=== PATIENT | female | born 1970 | race Caucasian/White ===

== ENCOUNTER 2020-04-12 18:22 | Emergency (ER) | payer OTHER, SELFPAY ==
[2020-04-12 18:28] VITALS: BP 125/80; PULSE 67; RESP 16; O2SAT 100
[2020-04-12 19:02] LABS: Add Manual Diff / Slide Review NO; Basophils Absolute Auto 0 /uL (0-100); Basophils Percent Auto 0.3 % (0-2); Eosinophils Absolute Auto 500 /uL (0-450); Hematocrit 37.6 % (36-46); Hemoglobin 13.1 g/dL (12.0-16.0); Lymphocytes Absolute Auto 3000 /uL (1100-4500); Lymphocytes Percent Auto 40.6 % (25-40); Mean Corpuscular HGB Conc 34.7 % (30-36); Mean Corpuscular Hemoglobin 31.3 PG (26-34); Mean Corpuscular Volume 90.1 fL (80-100); Monocytes Absolute Auto 400 /uL (0-900); Monocytes Percent Auto 5.1 % (3-14); Neutrophils Absolute Auto 3600 /uL (1500-7000); Platelet Count 271 X10^3/uL (150-400); Red Blood Cell Count 4.18 X10^6/uL (4.0-5.2); White Blood Cell Count 7.5 X10^3/uL (4.5-11.0)
--- NOTE | 2020-04-12 19:09 | ED_ITS ---
HPI - General Adult General Chief complaint: Abdominal Pain Stated complaint: possible diverticulitis or appendicitis Time Seen by Provider: 04/12/20 19:03 Source: patient Mode of arrival: Ambulatory Limitations: no limitations History of Present Illness HPI narrative: 50-year-old female. History of diverticulosis. No history of diverticulitis. 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 Here for evaluation of right lower quadrant abdominal pain. States that it does radiate around her back. Saw her primary provider who sent her to the emergency department for concern of appendicitis versus diverticulitis. Has not tried anything for the symptoms prior to arrival. His currently finishing a menstrual cycle. No urinary symptoms. No change in bowel habits. No vomiting. Related Data Home Medications Medication Instructions Recorded Confirmed amlodipine 5 mg tablet 5 mg PO DAILY 05/11/19 05/11/19 citalopram 10 mg tablet 10 mg PO DAILY 05/11/19 05/11/19 Allergies Allergy/AdvReac Type Severity Reaction Status Date / Time codeine [CODEINE] Allergy Mild vomit Verified 04/12/20 19:25 Morpholine Analogues AdvReac Verified 04/12/20 19:25 Review of Systems Constitutional Constitutional: Denies fever(s) Cardiovascular Cardiovascular: Denies chest pain and Denies dyspnea Respiratory Respiratory: Denies dyspnea Gastrointestinal Gastrointestinal: Reports abdominal pain and Denies change in bowel habits Genitourinary Genitourinary: Denies dysuria Genitourinary: Denies dysuria Integumentary/Breasts Skin/Breast: Denies lesions and Denies rash Neurologic Neurologic: Denies behavioral changes Psychiatric Psychiatric: Denies behavioral changes Hematologic/Lymphatic Hematologic/Lymphatic: Denies easy bleeding and Denies easy bruising Allergic/Immunologic Allergic/Immunologic: Denies urticaria Patient History Medical History Diverticulosis (Acute) History of depressive symptoms Social History Smoking Status: Never smoker Smoking Status: Never smoker Exam Initial Vital Signs Initial Vital Signs: Vital Signs Pulse Rate 67 04/12/20 18:28 Respiratory Rate 16 04/12/20 18:28 Blood Pressure 125/80 04/12/20 18:28 Pulse Oximetry 100 04/12/20 18:28 Const General: cooperative, healthy appearing, comfortable and well developed Limitations: mental status not altered HENMT Head: normal to inspection and normocephalic Resp Effort & Inspection: normal respiratory effort Auscultation: clear to auscultation bilaterally Cardio Rate: regular rate Rhythm: regular rhythm GI Inspection: non-distended Palpation: soft, No firm and tender (Right lower quadrant without rebound or guarding) Back/Spine/Pelvis Back: CVA tenderness right Skin Lesions: no lesions Rashes: no rashes Neuro General: patient alert and patient awake Cognition: normal cognition Speech: speech normal Extrem General: normal to inspection and capillary refill normal Psych Appearance: grossly normal and well kempt Course Orders Ordered: ED Orders 04/12/20 18:54 Complete Blood Count AUTO DIFF Stat Comprehensive Metabolic Panel Stat Lipase Stat 04/12/20 19:10 CT abdomen pelvis w con Stat Discontinued Medications Sodium Chloride (Normal Saline 0.9%) 1,000 mls @ 150 mls/hr IV CONT FARHAT Last Admin: 04/12/20 21:03 Dose: Not Given Documented by: JANUSZ Sodium Chloride (Normal Saline 0.9%) 1,000 mls @ 1,000 mls/hr IV BOLUS ONE Stop: 04/12/20 20:09 Last Admin: 04/12/20 19:25 Dose: 1,000 mls/hr Documented by: JANUSZ Vital Signs Vital signs: Vital Signs - 8 hr 04/12/20 18:28 04/12/20 21:04 Temperature 98.2 F Pulse Rate 67 57 L Respiratory Rate 16 21 Blood Pressure 125/80 130/74 Pulse Oximetry 100 100 Medical Decision Making Medical Records Medical records reviewed: Yes I reviewed the patient's medical records. Lab Data Lab results reviewed: Yes I reviewed the patient's lab results. Result diagrams: 04/12/20 18:54 04/12/20 18:54 Labs: Lab Results 04/12/20 04/12/20 Range/Units 18:54 18:54 WBC 7.5 (4.5-11.0) X10^3/uL RBC 4.18 (4.0-5.2) X10^6/uL Hgb 13.1 (12.0-16.0) g/dL Hct 37.6 (36-46) % MCV 90.1 (80-100) fL MCH 31.3 (26-34) PG MCHC 34.7 (30-36) % RDW 13.0 (11.6-14.8) % Plt Count 271 (150-400) X10^3/uL Neut % (Auto) 48.0 L (50-75) % Lymph % (Auto) 40.6 H (25-40) % Larue % (Auto) 5.1 (3-14) % Eos % (Auto) 6.0 H (2-4) % Baso % (Auto) 0.3 (0-2) % Neut # (Auto) 3600 (5093-6351) /uL Lymph # (Auto) 3000 (1085-6312) /uL Larue # (Auto) 400 (0-900) /uL Eos # (Auto) 500 H (0-450) /uL Baso # (Auto) 0 (0-100) /uL Sodium 137 (137-145) mmol/L Potassium 4.5 (3.4-5.1) mmol/L Chloride 106 (98-107) mmol/L Carbon Dioxide 23 (22-32) mmol/L BUN 17 (7-17) mg/dL Creatinine 0.78 (0.52-1.04) mg/dL Estimated GFR > 60.0 (>60) mL/min BUN/Creatinine Ratio 21.8 (6-22) Glucose 80 (70-100) mg/dL Calcium 9.6 (8.4-10.2) mg/dL Total Bilirubin 0.9 (0.2-1.3) mg/dL AST 51 H (14-36) IU/L ALT 29 (<35) IU/L Alkaline Phosphatase 51 (38-126) U/L Total Protein 8.2 (6.3-8.2) g/dL Albumin 4.9 (3.5-5.0) g/dL Globulin 3.3 (1.7-4.1) g/dL Albumin/Globulin Ratio 1.5 (1.0-2.8) Lipase 129 (23-300) U/L Urine Dip Bedside Urine Glucose Negative Bedside Urine Bilirubin - Negative Bedside Urine Ketone +/- 5 Urine Specific [place] 1.015 Bedside Urine Occult Blood ++ Bedside Urine pH 7.0 Bedside Urine Protein - Negative Bedside Urine Urobilinogen - Negative Bedside Urine Nitrite - Negative Bedside Urine Leukocytes - Negative Esterase Point of care testing: Urine Dip Bedside Urine Glucose Negative Bedside Urine Bilirubin - Negative Bedside Urine Ketone +/- 5 Urine Specific [place] 1.015 Bedside Urine Occult Blood ++ Bedside Urine pH 7.0 Bedside Urine Protein - Negative Bedside Urine Urobilinogen - Negative Bedside Urine Nitrite - Negative Bedside Urine Leukocytes - Negative Esterase Imaging Data CT scan - abdomen/pelvis: Radiologist's Impression: Small nonobstructive right nephrolithiasis, normal appendix MDM Narrative Medical decision making narrative: Nontoxic appearing. Urine does have blood however no signs of infection. CT scan shows no acute pathology. Low suspicion for UTI/pyelonephritis. Low suspicion for diverticulosis. Low suspicion for bowel obstruction, or other intra-abdominal surgical pathology. No skin changes over the area of concern. Unsure the exact etiology but does not appear to be infectious/surgical in nature. We will hold on further workup for now. Patient was given return precautions and follow-up instructions. She expressed understanding and agreement. Discharge Plan Departure Patient Disposition: Home Clinical Impression: Abdominal pain Qualifiers: Abdominal location: right lower quadrant Qualified Code(s): R10.31 - Right lower quadrant pain Discharge Date/Time: 04/12/20 20:43 Instructions: DI for Abdominal Pain-Adult Activity Restrictions/Additional Instructions: The CT scan did not show any signs of appendicitis or diverticulitis. There is also no signs of bowel obstructions. Unfortunately did not give us a direct cause of your symptoms today. Recommend you contact your primary provider for follow-up. Return to the emergency department for any new or worsening symptoms Prescriptions: No Action amlodipine 5 mg tablet 5 mg PO DAILY RF: 0 citalopram 10 mg tablet 10 mg PO DAILY RF: 0 Referrals: Anastasiia Palemr MD [Primary Care Provider] -
--- NOTE | 2020-04-12 19:10 | DI.CT.S_ITS ---
PROCEDURE: CT ABDOMEN PELVIS W CON INDICATIONS: Right-sided abdominal pain, concern for appy vs diverticulit TECHNIQUE: After the administration of intravenous contrast, 5 mm thick sections acquired from the diaphragm to the symphysis. 5 mm coronal and sagittal reformats were acquired. For radiation dose reduction, the following was used: automated exposure control, adjustment of mA and/or kV according to patient size. COMPARISON: None. FINDINGS: Image quality: Excellent. ABDOMEN: Lung bases: Lung bases are clear. Heart size is normal. Solid organs: Liver is normal in size and enhancement. Gallbladder negative. Biliary system is non dilated. Pancreas enhances normally. Spleen is normal in size and enhancement. No adrenal nodules. Kidneys demonstrate normal size and enhancement, without hydronephrosis. 5 mm right renal calculus. Peritoneum and bowel: Bowel loops demonstrate normal wall thickness and caliber. No free fluid or air. Normal appendix. Colonic diverticulosis is seen without evidence of acute complication. Nodes and vessels: No retroperitoneal or mesenteric adenopathy by size criteria. Aorta and inferior vena cava are normal in size. Small fat containing periumbilical hernia. PELVIS: Genitourinary: Bladder wall thickness is normal. Miscellaneous: No inguinal hernias or adenopathy. Bones: No suspicious bony lesions. No vertebral body compression fractures. IMPRESSION: Nonobstructive right nephrolithiasis. Elsewhere, no acute process. Normal appendix Incidental colonic diverticulosis. Additional chronic and incidental findings as above. Findings concordant with the preliminary study interpretation provided at the time of the exam. Dictated by: James Hackett M.D. on 04/13/2020 at 8:12 Approved by: James Hackett M.D. on 04/13/2020 at 8:17
[2020-04-12 19:16] LABS: Alanine Aminotransferase 29 IU/L (<35); Albumin 4.9 g/dL (3.5-5.0); Albumin Globulin Ratio 1.5 (1.0-2.8); Alkaline Phosphatase 51 U/L (38-126); Aspartate Aminotransferase 51 IU/L (14-36); BUN Creatinine Ratio 21.8 (6-22); Bilirubin Total 0.9 mg/dL (0.2-1.3); Blood Urea Nitrogen 17 mg/dL (7-17); Calcium 9.6 mg/dL (8.4-10.2); Carbon Dioxide 23 mmol/L (22-32); Chloride 106 mmol/L (98-107); Estimated Glomerular Filt Rate > 60.0 mL/min (>60); Globulin 3.3 g/dL (1.7-4.1); Glucose 80 mg/dL (70-100); Lipase 129 U/L (23-300); Potassium 4.5 mmol/L (3.4-5.1); Sodium 137 mmol/L (137-145); Total Protein 8.2 g/dL (6.3-8.2)
[2020-04-12 19:17] LABS: HEMOLYSIS 96 (0-50)
[2020-04-12] MEDS: SODIUM CHLORIDE 0.9% 1,000 ML 1000 ML IV (19:25)
[2020-04-12 21:04] VITALS: BP 130/74; PULSE 57; RESP 21; TEMP 36.8; O2SAT 100
== END 2020-04-12 20:43 | disposition home or self-care (01) ==
PROVIDERS: Emergency Provider Emergency Medicine; PCP Family Medicine
DX: R10.31 Right lower quadrant pain (principal)
CPT/HCPCS: 36415; 74177; 80053; 81003; 83690; 85025; 99284; Q9967

== ENCOUNTER → 2020-12-26 11:24 | Outpatient (CLI) | payer OTHER, SELFPAY ==
--- NOTE | 2020-12-26 11:29 | DI.CT.S_ITS ---
PROCEDURE: CT ABDOMEN PELVIS WO CON INDICATIONS: Unspecified abdominal pain TECHNIQUE: Noncontrast 5 mm thick sections acquired from the diaphragms to the symphysis. 5 mm coronal and sagittal reformats were then performed. For radiation dose reduction, the following was used: automated exposure control, adjustment of mA and/or kV according to patient size. COMPARISON: None. FINDINGS: Image quality: Excellent. ABDOMEN: Lung bases: Lung bases are clear. Heart size is normal. Solid organs: Liver is normal in size. Gallbladder appears normal . Pancreas is normal in contours. Spleen is normal in size. No adrenal nodules. Kidneys are normal in size, without hydronephrosis or nephrolithiasis on the left, but there is a right-sided calculus at the middle 3rd collecting system border measuring up to 5 x 12 mm, without associated hydronephrosis. Peritoneum and bowel: Unenhanced bowel loops demonstrate normal wall thickness and caliber. No free fluid or air. Nodes and vessels: No retroperitoneal or mesenteric adenopathy by size criteria. Aorta and inferior vena cava are normal in caliber. Miscellaneous: No ventral hernias. PELVIS: Genitourinary: Bladder wall thickness is normal. Miscellaneous: No inguinal hernias or adenopathy. Bones: No suspicious bony lesions. No vertebral body compression fractures. IMPRESSION: 5 x 12 mm angular collecting system calculus that is nonobstructive at the middle 3rd kidney on the right. No other source of abdominal pain is found. Dictated by: Ryne Lu M.D. on 12/26/2020 at 13:12 Approved by: Ryne Lu M.D. on 12/26/2020 at 13:13
== END ==
PROVIDERS: PCP Family Medicine; Referring Provider Family Medicine; Visit Provider Family Medicine
DX: R10.9 Unspecified abdominal pain (principal); R31.9 Hematuria, unspecified; N20.0 Calculus of kidney
CPT/HCPCS: 74176

== ENCOUNTER → 2021-01-19 14:04 | Outpatient (CLI) | payer OTHER, SELFPAY ==
--- NOTE | 2021-01-19 14:05 | DI.RAD.S_ITS ---
PROCEDURE: XR KUB INDICATIONS: Kidney stones TECHNIQUE: One view of the abdomen acquired. COMPARISON: [facility], CT, CT ABDOMEN PELVIS WO CON, 12/26/2020, 11:28. FINDINGS: Surgical changes and devices: None. Bowel: Bowel gas pattern is normal. Soft tissues: No suspicious abdominal calcifications. Right renal stone previously identified by CT imaging is not definitely visualized by plain film radiograph. Visualized solid organ contours appear normal in size. Bones: No suspicious bony lesions. IMPRESSION: No definite renal stone identified by plain film radiograph. Dictated by: Parisa Tate MD, PhD on 01/19/2021 at 14:48 Approved by: Pairsa Tate MD, PhD on 01/19/2021 at 14:49
== END ==
PROVIDERS: PCP Family Medicine; Referring Provider Specialist; Visit Provider Specialist
DX: N20.0 Calculus of kidney (principal); N39.0 Urinary tract infection, site not specified; N23 Unspecified renal colic
CPT/HCPCS: 74018; 81002

== ENCOUNTER 2021-01-20 08:26 | Day surgery (SDC) | payer OTHER, SELFPAY ==
[2021-01-20] VITALS (9 sets, daily range): BP systolic 120–147; BP diastolic 74–84; PULSE 64–81; RESP 10–18; TEMP 36.2–37; O2SAT 96–99; BMI 32.6
[2021-01-20 09:21] LABS: COVID19 -Nasal RAPID Negative (Negative)
--- NOTE | 2021-01-20 10:00 | PM.PREOP ---
Pre-operative Note Interval Note History & Physical reviewed/Exam performed by Physician: Yes Changes to H&P: No
[2021-01-20] MEDS: LACTATED RINGERS 1,000 ML 42 ML IV (10:14)
[2021-01-20] MEDS: CEFAZOLIN 2 GM/100 ML FROZ.PIGGY IV (10:37)
--- NOTE | 2021-01-20 10:38 | SUR.OPER ---
Lithotomy on padded OR bed, head on pillow, arms secured on padded arm boards at <90 degrees abduction. Legs secured in padded yellow fins stirrups.
[2021-01-20] MEDS: BELLADONNA/OPIUM SUPPOSITORIES 1 EACH PR (11:04)
--- NOTE | 2021-01-20 11:10 | PM.OP.1 ---
Operative Date/Time/Diagnoses Date of procedure: 01/20/21 Time of procedure: 11:10 Pre-op diagnosis: Obstructing 6 x 12 mm left renal calculus Post-op diagnosis: same Procedure & Clinicians Procedure: 1. Cystoscopy with ureteral stone manipulation without removal. 2. Cystoscopy and placement right ureteral stent (7 Albanian by 22-32 cm multi-length). Same procedure as scheduled: Yes Indications: 1. Obstructing 6 x 12 mm right renal calculus 2. Right renal colic Surgeon: Yan Moran Click Yes if Unassisted: Yes Anesthesia Type: General Operative Notes Findings: 1. Urethra is in normal position and normal caliber. 2. Bladder-normal ureteral orifices bilaterally. Bladder urothelium appears normal throughout. Following advancement of the ureteral stent a obstructive, cloudy efflux was witnessed from the right ureteral orifice. Closure Type: not applicable Specimen(s): none sent Applied: other (Seven Albanian by 22-32 cm multi-length stent.) Estimated Blood Loss (mL): 0 Blood products transfused: none Tourniquet time (min): 0 Procedure in detail: Patient was positioned in supine and administered general anesthesia. She was then repositioned semi lithotomy and the lower abdomen, genitalia, and groin were prepped and draped in sterile fashion. The 22 Albanian panendoscope was then passed of lower urinary tract with the findings as described above. A 0.35 hybrid guidewire was then advanced through the working channel of the scope and then advanced into the right ureteral orifice under direct fluoroscopic guidance. Next, a 7 Albanian by 22-32 cm multi-length stent was selected. The stent was then advanced over the hybrid guidewire again under direct and fluoroscopic guidance. A SHORT RETRIEVAL LINE WAS LEFT ATTACHED. The bladder was then drained completely and all instrumentation was removed. The patient was then repositioned in supine, was awakened, and transferred to a gurney. Complications: none Post-operative Condition: stable Disposition: PACU Plan for aftercare: Discharge home
[2021-01-20] MEDS: OXYCODONE/ACETAMINOPHEN 5/325 TABLET 1 TAB PO ×2 (11:20→11:44)
[2021-01-20] MEDS: ONDANSETRON 4 MG/2 ML INJ IV (11:22)
[2021-01-20] MEDS: METOCLOPRAMIDE 10 MG/2 ML INJ IV (12:49)
[2021-01-20] MEDS: HYDROMORPHONE 2 MG INJ IV ×2 (12:57→13:03)
[2021-01-20] MEDS: ACETAMINOPHEN IV 1,000 MG/100 ML VIAL 400 MG IV (13:43)
--- NOTE | 2021-01-20 13:57 | SUR.PHASEII ---
Addendum entered by Mayra Beach R.N. 01/20/21 16:58: pt stated pain was tolerable, nauseated still however no emesis. pt felt like she was able to leave. informed that if she had issues at home that she could return to ER for care. pt requested nausea medicine at home for d/c, her PCP is [place] and the clinic is currently closed during transition. attempted to call Dr Moran's cell phone, left VM. also sent a text message, no response after 45 min. pt took all her bleonings home with her including purse from secure lockup. left in w/c to car with her . Original Note: pt arrived from Phase I in pain, had just received second dose of percocet. pt agreeable to waiting to let medication work. on reassessment, pt states pain not improved, requests to go to the bathroom, up and states pain better, able to urinate however has 200 ml of emesis when returned to bed. Reglan given and 2 doses of 0.5 mg dilaudid given. pt states pain improved and was able to sleep afterwards. pt was placed on continuous pulse ox. spoke with Dr Moran, telephone order to give pt 1g IV tylenol. this is being infused, this is being infused.
== END 2021-01-20 15:50 | disposition home or self-care (01) ==
PROVIDERS: PCP Family Medicine; Referring Provider Specialist; Visit Provider Specialist
PROC: (CPT 52330; principal; 2021-01-20 09:45)
DX: N20.0 Calculus of kidney (principal); I10 Essential (primary) hypertension; K21.9 Gastro-esophageal reflux disease without esophagitis; G47.33 Obstructive sleep apnea (adult) (pediatric); Z20.822 Contact with and (suspected) exposure to COVID-19
CPT/HCPCS: 52330; 52332; 82962; 87635; J0131; J0690; J1100; J1170; J2405; J2704; J2765; J3010

== ENCOUNTER 2021-02-13 07:56 | Day surgery (SDC) | payer OTHER, SELFPAY ==
[2021-02-13] VITALS (9 sets, daily range): BP systolic 128–143; BP diastolic 79–91; PULSE 76–87; RESP 12–16; TEMP 36.4–36.8; O2SAT 95–99; BMI 31.9
--- NOTE | 2021-02-13 | DI.RAD.S_ITS ---
PROCEDURE: XR ABDOMEN 1V INDICATIONS: CYSTO TECHNIQUE: One view of the abdomen acquired. COMPARISON: [facility], CT, CT KUB, 01/28/2021, 16:00. FINDINGS: Single submitted image demonstrates a right ureteral stent with the proximal portion of the stent projected over the right flank. . IMPRESSION: Right ureteral stent with the proximal portion of the stent projected over the right flank. Dictated by: Eric Pennington [facility] Interpreted: Beka Baeza MD on 02/13/2021 at 16:00 Approved by: Beka Baeza M.D. on 02/13/2021 at 16:52
[2021-02-13 08:28] LABS: COVID19 -Nasal RAPID Negative (Negative)
--- NOTE | 2021-02-13 09:27 | PM.PREOP ---
Pre-operative Note Interval Note History & Physical reviewed/Exam performed by Physician: Yes Changes to H&P: No
[2021-02-13] MEDS: LACTATED RINGERS 1,000 ML 42 ML IV (09:31)
[2021-02-13] MEDS: GENTAMICIN 160 MG in SODIUM CHLORIDE 0.9% 100 ML 104 ML IV (09:56)
[2021-02-13] MEDS: VANCOMYCIN 1,000 MG/200 ML PIGGYBACK 200 MG IV (10:15)
--- NOTE | 2021-02-13 10:27 | SUR.OPER ---
Lithotomy on padded OR bed, head on pillow, arms secured on padded arm boards at <90 degrees abduction. Legs secured in padded yellow fins stirrups.
[2021-02-13] MEDS: BELLADONNA/OPIUM SUPPOSITORIES 1 EACH PR (10:36)
[2021-02-13] MEDS: IOPAMIDOL 15 ML VIAL INJ (10:42)
--- NOTE | 2021-02-13 10:44 | SUR.OPER ---
see laser rep sheet for laser settings, power and duration
--- NOTE | 2021-02-13 10:56 | P.OP_ITS ---
Operative Date/Time/Diagnoses Date of procedure: 02/13/21 Time of procedure: 10:57 Pre-op diagnosis: 1. 6 x 12 mm left renal calculus 2. Retained right ureteral stent Post-op diagnosis: same Procedure & Clinicians Procedure: 1. Cystoscopy and right ureteroscopic laser lithotripsy 2. Cystoscopy and right ureteral stent exchange (7 Portuguese by 22-32 cm multi- length) Same procedure as scheduled: Yes Indications: 1. 6 x 12 mm right renal calculus. 2. History of obstructing 6 x 12 mm right ureteropelvic junction calculus. 3. Retained right ureteral stent. Surgeon: Yan Moran Click Yes if Unassisted: Yes Anesthesia Type: General Operative Notes Findings: 1. Urethra-normal caliber without lesion. 2. Bladder-expected erythema and edema the this a the right ureteral orifice with intact right indwelling stent. The urine is discolored due to the use of Pyridium. 3. Right intrarenal collecting system-the index calculus was fragmented in 3 major pieces residing dependently. Several much smaller associated fragments. Closure Type: not applicable Specimen(s): none sent Applied: other (7 x 22-32 cm multi-length stent) Estimated Blood Loss (mL): 0 Blood products transfused: none Procedure in detail: Patient was positioned supine and was administered general anesthesia. She was then repositioned semi lithotomy and the lower abdomen, genitalia, and groin were prepped and draped in sterile fashion. The 22 Portuguese panendoscope was advanced lower urinary tract in the retained right ureteral stent was engaged at its distal end and brought out to the perineum. A 0.35 hybrid guidewire was then advanced through the lumen of the stent under fluoroscopic guidance. The stent was then backloaded off the wire and discarded. A dual-lumen ureteral access sheath was advanced over this wire under direct and fluoroscopic guidance. A 2nd wire of the same type was then advanced through the accessory port of the dual-lumen ureteral access sheath. Ureteral access sheath was then backloaded off both wires. One wire was secured to the drape. The flexible ureteral scope was then advanced over the other wire under direct and fluoroscopic guidance. The guidewire was then withdrawn and from within the working port of the flexible ureteral scope. Intrarenal findings were as above. A 200 micron laser fiber was then selected. All operating room personnel were then fitted with laser safety eyewear. Laser lithotripsy was then commenced with excellent resultant fragmentation using the dusting mode. Retrograde pyelography was then performed on 2 occasions to allow careful inspection of all associated major and minor calices for other residual significant fragment her stone. The flexible ureteral scope was then removed. The safety wire was then backloaded into the 22 Portuguese panendoscope. A 7 Portuguese by 22-32 cm multi-length stent was then selected. A RETRIEVAL LINE WAS LEFT ATTACHED. Stent was then advanced over the hybrid guidewire under direct and fluoroscopic guidance. The wire was then removed the stent was in satisfactory position. The bladder was then drained completely and all instrumentation removed. The retrieval lines were then trimmed to appropriate length in the area of the perineum. The patient was then repositioned in supine, awakened, and [facility]. Complications: none Post-operative Condition: stable Disposition: PACU Plan for aftercare: Discharge home.
[2021-02-13] MEDS: FUROSEMIDE 40 MG/4 ML VIAL 20 MG IV ×2 (11:48)
[2021-02-13] MEDS: OXYCODONE IR 5 MG TABLET PO (12:49)
[2021-02-20 15:46] LABS: Size <1 mm (.)
== END 2021-02-13 14:05 | disposition home or self-care (01) ==
PROVIDERS: PCP Family Medicine; Referring Provider Specialist; Visit Provider Specialist
PROC: (CPT 52356; principal; 2021-02-13 09:45)
DX: N20.0 Calculus of kidney (principal); K21.9 Gastro-esophageal reflux disease without esophagitis; I10 Essential (primary) hypertension; Z20.822 Contact with and (suspected) exposure to COVID-19
CPT/HCPCS: 52356; 74018; 76000; 82365; 87635; J1940; J3010

== ENCOUNTER 2021-02-19 19:44 | Emergency (ER) | payer OTHER, SELFPAY ==
[2021-02-19 20:01] VITALS: BP 161/72; PULSE 83; RESP 22; TEMP 37; O2SAT 98
--- NOTE | 2021-02-19 20:26 | ED_ITS ---
HPI - Female Genitourinary General Chief complaint: Urogenital-Female Stated complaint: blood in urine, abdominal discomfort Time Seen by Provider: 02/19/21 19:47 Source: patient Mode of arrival: Ambulatory Limitations: no limitations History of Present Illness HPI Narrative: 51-year-old female nonsmoker with history of kidney stones with recent stenting and subsequent hospitalizations for possible urosepsis presents with a chief complaint of recurrence of some mild suprapubic and right flank tenderness and hematuria over the course of the day. She denies any systemic findings such as fever, chills nor nausea or vomiting. She has been taking her prophylactic antibiotics as previously instructed. She had been scheduled to have her stent removed tomorrow but bumped a back a few days to be in line with other travel plans. She denies any chest pain or shortness of breath. She denies any change in bowel habits. She states her discomfort is slightly worse with motion and improves with rest. MD Complaint: UTI Onset (ago): hour(s) Location: suprapubic Female Urogenital Radiation: R Flank Severity: mild Quality: Aching Duration: constant Relieving factors: none Exacerbating factors: none Urinary symptoms: Dysuria, Flank Pain and Hematuria Patient : No Related Data Home Medications Medication Instructions Recorded Confirmed amlodipine 5 mg tablet 10 mg PO BEDTIME 05/11/19 02/13/21 citalopram 10 mg tablet 10 mg PO BEDTIME 05/11/19 02/10/21 B-complex with vitamin C 1 cap PO DAILY 01/19/21 02/13/21 cholecalciferol (vitamin D3) 250 250 mcg PO DAILY 01/19/21 02/13/21 mcg (10,000 unit) capsule digestive enzymes (plant) 167 mg 167 mg PO DAILY 01/19/21 02/13/21 capsule magnesium citrate 125 mg capsule 250 mg PO DAILY 01/19/21 02/13/21 molybdenum 250 mg PO TID 01/19/21 02/13/21 multivitamin 1 tab PO DAILY 01/19/21 02/13/21 naproxen sodium 220 mg tablet 220 mg PO Q12H 02/06/21 02/13/21 sennosides 8.6 mg tablet 8.6 mg PO BID 02/06/21 02/13/21 nitrofurantoin monohyd/m-cryst 100 mg PO QPM 02/10/21 02/10/21 Previous Rx's Medication Instructions Recorded oxycodone 5 mg PO Q4H PRN #10 tab 02/13/21 nitrofurantoin macrocrystal 100 mg PO BEDTIME #5 cap 02/19/21 tolterodine [Detrol] 1 mg PO BID #14 tab 02/19/21 Allergies Allergy/AdvReac Type Severity Reaction Status Date / Time codeine [CODEINE] Allergy Mild vomit Verified 02/04/21 22:23 adhesive tape Allergy Verified 02/13/21 09:13 levofloxacin [From Levaquin] AdvReac Hallucinati Verified 02/13/21 09:35 ng Morpholine Analogues AdvReac Vomiting Verified 02/04/21 22:23 ondansetron [From Zofran] AdvReac Palpitation Verified 02/19/21 23:07 s Review of Systems Constitutional Constitutional: Denies chills, Denies fatigue, Denies fever(s), Denies frequent falls, Denies lethargy and Denies weakness Eyes Eyes: Denies change in vision, Denies eye discharge, Denies irritation and Denies loss of vision ENT Ears, Nose, Mouth, and Throat: Denies change in voice, Denies dizziness, Denies neck pain, Denies sore throat and Denies throat swelling Cardiovascular Cardiovascular: Denies chest pain, Denies irregular heart rhythm, Denies lightheadedness, Denies palpitations, Denies dyspnea, Denies dyspnea on exertion and Denies orthopnea Respiratory Respiratory: Denies cough, Denies dyspnea, Denies dyspnea on exertion and Denies wheezing Gastrointestinal Gastrointestinal: Denies abdominal pain, Denies change in bowel habits, Denies diarrhea, Denies nausea and Denies vomiting Genitourinary Genitourinary: Reports flank pain Genitourinary: Reports flank pain Musculoskeletal Musculoskeletal: Denies neck pain and Denies numbness Integumentary/Breasts Skin/Breast: Denies pruritus, Denies erythema, Denies rash and Denies wounds Neurologic Neurologic: Denies behavioral changes, Denies confusion, Denies dizziness, D enies frequent falls, Denies loss of vision, Denies numbness and Denies weakness Psychiatric Psychiatric: Denies anxiety, Denies behavioral changes, Denies confusion, Denies depression, Denies homicidal ideation and Denies suicidal ideation Endocrine Endocrine: Denies fatigue, Denies flushing and Denies palpitations Hematologic/Lymphatic Hematologic/Lymphatic: Denies easy bruising Allergic/Immunologic Allergic/Immunologic: Denies urticaria, Denies throat swelling and Denies wheezing Patient History Medical History Diverticulosis Dyspareunia due to 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 Well- nourished, well-developed patient, in mild distress. HEAD: Atraumatic. Normocephalic. EYES: Pupils equal round and reactive. Extraocular motions intact. No scleral icterus. No injection or drainage. ENT: Nose without bleeding, purulent drainage. Throat without erythema, tonsi llar hypertrophy or exudate. Airway patent. NECK: Trachea midline. Non tender CARDIOVASCULAR: Regular rate and rhythm without murmurs, gallops, or rubs. RESPIRATORY: Clear to auscultation. Breath sounds equal bilaterally. No wheezes, rales, or rhonchi. GASTROINTESTINAL: Abdomen soft, mild suprapubic tenderness, nondistended. EXTREMITIES: No edema or joint tenderness. BACK: Nontender without deformity or crepitance. No flank tenderness. NEURO: AOx3. SKIN: No rash or erythema of visible areas Initial Vital Signs Initial Vital Signs: Vital Signs Temperature 98.6 F 02/19/21 20:01 Pulse Rate 83 02/19/21 20:01 Respiratory Rate 22 02/19/21 20:01 Blood Pressure 161/72 H 02/19/21 20:01 Pulse Oximetry 98 02/19/21 20:01 Course Orders Ordered: ED Orders 02/19/21 21:24 Urine Culture Stat Urine Microscopic Stat 02/19/21 22:06 CT kidney ureter bladder (KUB) Stat 05/02/21 22:49 Complete Blood Count AUTO DIFF Stat Comprehensive Metabolic Panel Stat 02/19/21 22:58 Blood Culture Stat Discontinued Medications Sodium Chloride (Normal Saline 0.9%) 1,000 mls @ 1,000 mls/hr IV BOLUS ONE Stop: 02/19/21 23:05 Last Admin: 02/19/21 23:02 Dose: 1,000 mls/hr Documented by: BEN Phenazopyridine HCl (Phenazopyridine 100 Mg Prepack) 1 bottle MISC SEEINSTR ONE Stop: 02/19/21 23:42 Last Admin: 02/20/21 00:02 Dose: 1 bottle Documented by: ALEISHA Chavarria Consultation #1: call to [facility] Time: 23:35 Vital Signs Vital signs: Vital Signs - 8 hr 02/20/21 00:02 Pulse Rate 77 Respiratory Rate 18 Blood Pressure 134/84 Pulse Oximetry 98 MDM - Female Genitourinary Lab Data Result diagrams: 02/19/21 22:49 02/19/21 22:49 Labs: Lab Results 02/19/21 02/19/21 02/19/21 Range/Units 21:24 22:49 22:49 WBC 9.6 (4.5-11.0) X10^3/uL RBC 3.73 L (4.0-5.2) X10^6/uL Hgb 11.6 L (12.0-16.0) g/dL Hct 34.0 L (36-46) % MCV 91.3 (80-100) fL MCH 31.0 (26-34) PG MCHC 34.0 (30-36) % RDW 12.9 (11.6-14.8) % Plt Count 311 (150-400) X10^3/uL Neut % (Auto) 57.1 (50-75) % Lymph % (Auto) 28.5 (25-40) % Sharkey % (Auto) 7.4 (3-14) % Eos % (Auto) 6.1 H (2-4) % Baso % (Auto) 0.9 (0-2) % Neut # (Auto) 5500 (9064-3798) /uL Lymph # (Auto) 2700 (4134-9132) /uL Sharkey # (Auto) 700 (0-900) /uL Eos # (Auto) 600 H (0-450) /uL Baso # (Auto) 100 (0-100) /uL Sodium 137 (137-145) mmol/L Potassium 3.8 (3.4-5.1) mmol/L Chloride 104 (98-107) mmol/L Carbon Dioxide 25 (22-32) mmol/L BUN 15 (7-17) mg/dL Creatinine 0.87 (0.52-1.04) mg/dL Estimated GFR > 60.0 (>60) mL/min BUN/Creatinine Ratio 17.2 (6-22) Glucose 128 H (70-100) mg/dL Calcium 9.3 (8.4-10.2) mg/dL Total Bilirubin 0.3 (0.2-1.3) mg/dL AST 31 (14-36) IU/L ALT 42 H (<35) IU/L Alkaline Phosphatase 86 (38-126) U/L Total Protein 7.0 (6.3-8.2) g/dL Albumin 3.9 (3.5-5.0) g/dL Globulin 3.1 (1.7-4.1) g/dL Albumin/Globulin Ratio 1.3 (1.0-2.8) Urine RBC 1-5/hpf (0-5/HPF) Urine WBC 5-10/hpf H (0-5/HPF) Ur Squamous Epith Cells 0-1 /hpf (0-5/HPF) Urine Bacteria None seen (None) Urine Yeast 1-5/hpf H (None) Ur Culture Indicated? Specimen cultured Urine Dip Bedside Urine Glucose Negative Bedside Urine Bilirubin - Negative Bedside Urine Ketone - Negative Urine Specific [place] 1.015 Bedside Urine Occult Blood +++ Bedside Urine pH 6.0 Bedside Urine Protein - Negative Bedside Urine Urobilinogen - Negative Bedside Urine Nitrite - Negative Bedside Urine Leukocytes + [address] scan - abdomen/pelvis: Radiologist's Impression: Probably position right ureteral stent. No hydronephrosis. Periureteral stranding could be secondary to recent instrumentation. [facility] Narrative Medical decision making narrative: Patient has very reassuring exam. Her urine does show 5-10 white blood cells and she has been on prophylactic nitrofurantoin. She has no systemic findings, pain is well controlled and she can tolerate oral hydration. She shows no signs of sepsis, serum lab studies are reassuring and there is no renal failure or significant finding on CT. I have discussed her case with her urologist who requests that I keep her on her current nitrofurantoin regimen, add Pyridium and Detrol and encouraged her to follow-up closely Discharge Plan Departure Patient Disposition: Home Clinical Impression: Acute flank pain Hematuria Qualifiers: Hematuria type: unspecified type Qualified Code(s): R31.9 - Hematuria, unspecified Instructions: DI for Hematuria Activity Restrictions/Additional Instructions: *You have been diagnosed with [right flank pain and hematuria, likely a consequence of your ureteral stent.] *What to do: *Take medications as directed *Follow up with your urologist in 2-3 days, call for an appointment. Let them know you were seen in the Emergency Department and that we ask that you be seen in follow up *Return to ER if you should have any new, worsening or concerning symptoms, such as [increasing pain, fever greater than 101 F, shaking chills or other bothersome symptoms] Prescriptions: New nitrofurantoin macrocrystal 100 mg capsule 100 mg PO BEDTIME Qty: 5 RF: 0 tolterodine [Detrol] 1 mg tablet 1 mg PO BID Qty: 14 RF: 0 No Action nitrofurantoin monohyd/m-cryst 100 mg Capsule 100 mg PO QPM RF: 0 oxycodone 5 mg tablet 5 mg PO Q4H PRN (Reason: pain) Qty: 10 RF: 0 naproxen sodium [Aleve] 220 mg tablet 220 mg PO Q12H RF: 0 sennosides [Natural Senna Laxative] 8.6 mg tablet 8.6 mg PO BID RF: 0 amlodipine 5 mg tablet 10 mg PO BEDTIME RF: 0 citalopram 10 mg tablet 10 mg PO BEDTIME RF: 0 multivitamin Tablet 1 tab PO DAILY RF: 0 magnesium citrate 125 mg capsule 250 mg PO DAILY RF: 0 cholecalciferol (vitamin D3) 250 mcg (10,000 unit) capsule 250 mcg PO DAILY RF: 0 B-complex with vitamin C Capsule 1 cap PO DAILY RF: 0 digestive enzymes (plant) 167 mg capsule 167 mg PO DAILY RF: 0 molybdenum 250 mg PO TID RF: 0 Referrals: Beka Vang MD [Primary Care Provider] - Yan Moran MD [Physician] -
[2021-02-19 21:25] LABS: Bacteria Urine None Seen
[2021-02-19 21:40] LABS: RBC Urine 1-5/HPF (0-5/HPF); WBC Urine 5-10/HPF (0-5/HPF)
[2021-02-19 21:41] LABS: Squamous Epithelial Cell Urine 0-1 /HPF (0-5/HPF)
[2021-02-19 21:42] LABS: Culture Indicated Urine Specimen Cultured
--- NOTE | 2021-02-19 22:06 | DI.CT.S_ITS ---
PROCEDURE: CT KIDNEY URETER BLADDER (KUB) INDICATIONS: severe flank pain, recent urologic procedures, sepsis TECHNIQUE: Noncontrast 5 mm thick sections acquired from the diaphragms to the symphysis. 5 mm thick coronal and sagittal reformats were then performed. For radiation dose reduction, the following was used: automated exposure control, adjustment of mA and/or kV according to patient size. COMPARISON: [facility], CT, CT KUB, 01/20/2021, 18:45. [facility], CT, CT KUB, 01/28/2021, 16:00. FINDINGS: Image quality: Excellent. Lung bases: Lung bases are clear. Heart size is normal. Urinary system: Both kidneys are normal in size. Right ureteral stent extends from the right kidney to the urinary bladder. No kidney stones. No hydronephrosis or perinephric fat stranding. Both ureters appear non-dilated throughout their expected courses. Mild stranding noted adjacent to the right ureter. Bladder wall thickness is normal; no calcified bladder stones. Other solid organs: Liver is normal in size. Gallbladder is contracted, but within normal limits. Pancreas is normal in contours. Spleen is normal in size. No adrenal nodules. Peritoneum and bowel: Unenhanced bowel loops demonstrate normal wall thickness and caliber. No free fluid or air. Nodes and vessels: No retroperitoneal or mesenteric adenopathy by size criteria. Aorta and inferior vena cava are normal in caliber. Abdominal wall: Small fat containing umbilical hernia. Pelvis: No free pelvic fluid. No inguinal hernias or adenopathy. 3.4 centimeter right adnexal region cyst. Bones: No suspicious bony lesions. No vertebral body compression fractures. IMPRESSION: 1. Right ureteral stent in expected position. 2. No hydronephrosis or renal stone identified in the current study. 3. Mild right periureteral inflammatory stranding which could be due to recent instrumentation/lithotripsy or infection. Recommend correlation with urinalysis data. Dictated by: Parisa Tate MD, PhD on 02/20/2021 at 7:56 Approved by: Parisa Tate MD, PhD on 02/20/2021 at 8:04
[2021-02-19 23:02] LABS: Add Manual Diff / Slide Review NO; Basophils Absolute Auto 100 /uL (0-100); Basophils Percent Auto 0.9 % (0-2); Eosinophils Absolute Auto 600 /uL (0-450); Eosinophils Percent Auto 6.1 % (2-4); Hemoglobin 11.6 g/dL (12.0-16.0); Lymphocytes Absolute Auto 2700 /uL (1100-4500); Lymphocytes Percent Auto 28.5 % (25-40); Mean Corpuscular Volume 91.3 fL (80-100); Monocytes Absolute Auto 700 /uL (0-900); Monocytes Percent Auto 7.4 % (3-14); Neutrophils Absolute Auto 5500 /uL (1500-7000); Neutrophils Percent Auto 57.1 % (50-75); Platelet Count 311 X10^3/uL (150-400); Red Blood Cell Count 3.73 X10^6/uL (4.0-5.2); Red Cell Distribution Width 12.9 % (11.6-14.8); White Blood Cell Count 9.6 X10^3/uL (4.5-11.0)
[2021-02-19] MEDS: SODIUM CHLORIDE 0.9% 1,000 ML 1000 ML IV (23:02)
[2021-02-19 23:09] LABS: Alanine Aminotransferase 42 IU/L (<35); Albumin 3.9 g/dL (3.5-5.0); Albumin Globulin Ratio 1.3 (1.0-2.8); Alkaline Phosphatase 86 U/L (38-126); Aspartate Aminotransferase 31 IU/L (14-36); BUN Creatinine Ratio 17.2 (6-22); Bilirubin Total 0.3 mg/dL (0.2-1.3); Blood Urea Nitrogen 15 mg/dL (7-17); Calcium 9.3 mg/dL (8.4-10.2); Carbon Dioxide 25 mmol/L (22-32); Chloride 104 mmol/L (98-107); Estimated Glomerular Filt Rate > 60.0 mL/min (>60); Globulin 3.1 g/dL (1.7-4.1); Glucose 128 mg/dL (70-100); HEMOLYSIS < 15 (0-50); Potassium 3.8 mmol/L (3.4-5.1); Sodium 137 mmol/L (137-145)
[2021-02-20 00:02] VITALS: BP 134/84; PULSE 77; RESP 18; O2SAT 98
[2021-02-20] MEDS: PHENAZOPYRIDINE 100 MG PREPACK 1 BOTTLE MISC (00:02)
--- NOTE | 2021-03-07 15:40 | PC.NURSE ---
Late Entry- per RN IV Fluids discontinued when IV was DC'd.
== END 2021-02-20 00:02 | disposition home or self-care (01) ==
PROVIDERS: Emergency Provider Emergency Medicine; PCP Family Medicine
DX: R10.9 Unspecified abdominal pain (principal); R31.9 Hematuria, unspecified
CPT/HCPCS: 36415; 74176; 80053; 81003; 81015; 85025; 87040; 87077; 87086; 96360; 99284

== ENCOUNTER → 2021-02-22 11:22 | Outpatient (CLI) | payer OTHER, SELFPAY ==
[2021-02-28 20:03] LABS: Ca oxalate dihydrate 100 % (.); Size 3x2 mm (.)
== END ==
PROVIDERS: PCP Family Medicine; Visit Provider Specialist
DX: N20.0 Calculus of kidney (principal)
CPT/HCPCS: 82365

== ENCOUNTER → 2021-03-23 10:46 | Outpatient (CLI) | payer OTHER, SELFPAY ==
[2021-03-23 19:16] LABS: Calcium 9.8 mg/dL (8.4-10.2); Uric Acid 4.4 mg/dL (2.5-6.2)
[2021-03-25 10:19] LABS: Parathyroid Hormone Int 44 pg/mL (15-65)
== END ==
PROVIDERS: PCP Family Medicine; Visit Provider Specialist
DX: N20.0 Calculus of kidney (principal)
CPT/HCPCS: 82310; 83970; 84550

== ENCOUNTER → 2021-06-09 08:43 | Outpatient (CLI) | payer OTHER, SELFPAY ==
[2021-06-09 20:03] LABS: Alanine Aminotransferase 20 IU/L (<35); Albumin 4.2 g/dL (3.5-5.0); Albumin Globulin Ratio 1.4 (1.0-2.8); Alkaline Phosphatase 78 U/L (38-126); Aspartate Aminotransferase 24 IU/L (14-36); BUN Creatinine Ratio 25.8 (6-22); Bilirubin Total 0.5 mg/dL (0.2-1.3); Blood Urea Nitrogen 24 mg/dL (7-17); Calcium 9.7 mg/dL (8.4-10.2); Carbon Dioxide 26 mmol/L (22-32); Chloride 103 mmol/L (98-107); Estimated Glomerular Filt Rate > 60.0 mL/min (>60); Glucose 109 mg/dL (70-100); HEMOLYSIS < 15 (0-50); Potassium 4.1 mmol/L (3.4-5.1); Sodium 137 mmol/L (137-145); Total Protein 7.2 g/dL (6.3-8.2)
[2021-06-09 20:19] LABS: Vitamin D 25 Hydroxy (D3) 28.9 ng/mL (30.0-100.0)
== END ==
PROVIDERS: Specialist; PCP Family Medicine; Visit Provider Family Medicine
DX: N20.0 Calculus of kidney (principal); R60.0 Localized edema; Z87.442 Personal history of urinary calculi
CPT/HCPCS: 80053; 82306

== ENCOUNTER → 2021-07-12 15:05 | Outpatient (CLI) | payer OTHER, SELFPAY ==
--- NOTE | 2021-07-12 15:08 | DIET.PN1 ---
Dietary Progress Note Assessment: 51y F attending telehealth RD visit regarding nutrition reccs for Kidney Stones (calcium oxalate) and help managing the low FODMAP diet she follows for SIBO and bloating as well as GERD. Pt with two bouts of kidney stones (March 2020, December 2020) two Litholink tests resulting in high oxalate (41 and 38) and calcium (285 and 361) in urine and low urine pH (5.431 and 5.67) respectively. Pt has been following a low FODMAP diet for a year or longer to try to deal with some GI issues. Because pt lives on [facility] with somewhat limited food choices as well as avoiding many fibers and sugars in fruits and veggies, pt was avoiding most vegetables except lettuce, tomato, cucumber with high intake meat and cheese, likely leading to high urine pH and aggravating high urine calcium. Once told to exclude high oxalate foods, pt printed list of foods with oxalates and further restricted fruit and vegetable intake. Prior to litholink test, pt was taking multivitamin (calcium and vit C), calcium, 10,000IU vitamin D, and tea containing ascorbic acid. Pt stopped all supplements. Pt presents with poor food quality of life and fear of eating the wrong foods. Nutrition Diagnosis: 1. poor nutrition quality of life r/t nutrition related knowledge deficit aeb pt following reccs for two restrictive diets (low oxalates, low FODMAPS) which can be contradictory with little commonality. 2. undesirable food choices r/t foods to reduce kidney stone risk aeb pt at high risk for forming calcium oxalate stones with two known occurrences, pts low FODMAP diet increasing risk for calcium oxalate stone formation. Interventions: 1. Reviewed MNT for Kidney Stones focusing on areas of concern for patient based on litholink test. To address high urine oxalate, pt will: avoid supplemental vitamin C, start eating cultured/fermented foods or probiotic supplement, avoid eating: spinach, monegasque chard, beet greens, potato fries and chips, and moderate intake nuts/nut butter. To address high urine calcium and low urine pH, pt will: increase consumption fruits and vegetables (low FODMAP for now) and reduce intake salt. 2. Reviewed low FODMAP diet and proper protocol for using diet. Provided pt handout and instruction on reintroduction phase of diet which she has not done. Instructed pt to systematically reintroduce foods (eat one new food each day for 3 days in a row, if tolerated, consume freely) to increase pts food quality of life without aggravating sx. 3. Pt drinks mint tea regularly, suggested pt cut out mint tea to see if helps GERD. Monitoring/Evaluations: Pt has f/u c urologist next week, will check with insurance on nutrition coverage and schedule f/u as needed.
== END ==
PROVIDERS: PCP Family Medicine; Referring Provider Family Medicine; Visit Provider Family Medicine
DX: K21.9 Gastro-esophageal reflux disease without esophagitis (principal); K63.89 Other specified diseases of intestine; Z87.442 Personal history of urinary calculi; Z71.3 Dietary counseling and surveillance
CPT/HCPCS: 97802

== ENCOUNTER → 2021-09-18 15:01 | Outpatient (CLI) | payer OTHER, SELFPAY ==
--- NOTE | 2021-09-18 15:08 | DIET.PN1 ---
Dietary Progress Note Assessment: 51y F attending [address] f/u visit via telehealth for ongoing symptoms related to SIBO c hx kidney stones. Pt is experiencing malodorous belching which is bothering not only her, but those close to her. Pt tried to get SIBO protocol from three providers without success. Pt curious if there is anything else we can do with nutrition to take care of this issue. Unfortunately if pt needs abx therapy for SIBO, that is outside scope of care for RD. Recc pt continue low fodmap diet avoiding oxalates until she can get more answers. Recommend pt contact [facility] which is teaching facility that provides SIBO protocol in their Digestive Wellness program. Provided pt with contact information to schedule. Monitoring/Evaluations: pt to f/u prn RD in hospital office, patient at her home using [employer] computer video calling for entire visit. Electronically Signed by: Lauren Savage 09/18/21 15:08 Clinical Dietitian [address] [address]
== END ==
PROVIDERS: PCP Family Medicine; Referring Provider Family Medicine; Visit Provider Family Medicine
DX: K63.89 Other specified diseases of intestine (principal); Z87.442 Personal history of urinary calculi; Z71.3 Dietary counseling and surveillance
CPT/HCPCS: 97803

== ENCOUNTER → 2022-03-09 09:29 | Outpatient (CLI) | payer OTHER, SELFPAY ==
--- NOTE | 2022-03-09 09:30 | DI.US.S_ITS ---
PROCEDURE: US PELVIC COMPLETE INDICATIONS: PERIMENOPAUSAL HEAVY BLEEDING TECHNIQUE: Real-time scanning was performed of the pelvic organs, with image documentation. Additional endovaginal scanning was necessary due to incomplete visualization of the adnexal and endometrial structures by transabdominal scanning. COMPARISON: [facility], CT, CT KIDNEY URETER BLADDER (KUB), 02/19/2021, 22:25. FINDINGS: Uterus: Uterus is anteverted and normal in size at 11 x 7.4 x 5.8 cm. The myometrium is homogeneous. Cysts area section scar. The endometrium measures 20 mm combined thickness. Small anechoic cystic region within the endometrial canal measuring 0.9 cm. Cystic change at the cervix likely due to small nabothian cyst. Ovaries: The right ovary is not seen. The left ovary measures 4.2 x 3.6 x 3.4 cm, with a calculated ovarian volume of 27 cc. The left ovary has a normal sonographic appearance. Simple left ovarian anechoic cyst measuring 3.6 cm. Less than 12 follicles can be seen in the left ovary. No adnexal masses are seen. Other: No pathologic free abdominal or pelvic fluid. IMPRESSION: 1. Endometrium is thickened measuring 20 mm. There is cystic change within the endometrium. Consider follow-up pelvic ultrasound or endometrial biopsy in this perimenopausal patient. 2. Simple anechoic left ovarian cyst measuring at 3.6 cm. Right ovary is not seen. We strive to produce accurate, complete, and clear reports of imaging services. To assist us in improving patient care, this report was composed using standard report templates and voice recognition software. Therefore, it may contain abnormal punctuation, insertions and/or omissions. Occasional wrong-word or sound-alike substitutions may occur. Though we review the report and make efforts to correct it, we do recommend that the report be read carefully in proper context to recognize any text inaccuracies. Dictated by: James Luna M.D. on 03/09/2022 at 10:25 Approved by: James Luna M.D. on 03/09/2022 at 10:31
== END ==
PROVIDERS: PCP Family Medicine; Referring Provider Obstetrics & Gynecology; Visit Provider Obstetrics & Gynecology
DX: N92.3 Ovulation bleeding (principal); N92.4 Excessive bleeding in the premenopausal period; R93.89 Abnormal findings on diagnostic imaging of other specified body structures; N83.292 Other ovarian cyst, left side
CPT/HCPCS: 76856

== ENCOUNTER → 2022-03-30 11:50 | Outpatient (CLI) | payer OTHER, SELFPAY ==
[2022-03-30 19:01] LABS: Add Manual Diff / Slide Review NO; Basophils Absolute Auto 100 /uL (0-100); Basophils Percent Auto 1.4 % (0-2); Eosinophils Absolute Auto 400 /uL (0-450); Eosinophils Percent Auto 5.1 % (2-4); Hematocrit 40.3 % (36-46); Lymphocytes Absolute Auto 1600 /uL (1100-4500); Lymphocytes Percent Auto 22.8 % (25-40); Mean Corpuscular HGB Conc 34.6 % (30-36); Mean Corpuscular Hemoglobin 30.3 PG (26-34); Mean Corpuscular Volume 87.5 fL (80-100); Monocytes Absolute Auto 600 /uL (0-900); Neutrophils Absolute Auto 4300 /uL (1500-7000); Neutrophils Percent Auto 61.7 % (50-75); Platelet Count 284 X10^3/uL (150-400); Red Blood Cell Count 4.61 X10^6/uL (4.0-5.2); Red Cell Distribution Width 13.5 % (11.6-14.8)
[2022-03-30 19:09] LABS: Blood Urea Nitrogen 13 mg/dL (7-17); Carbon Dioxide 27 mmol/L (22-32); Chloride 102 mmol/L (98-107); Cholesterol 202 mg/dL (140-199); Estimated Glomerular Filt Rate > 60 mL/min (>60); Glucose 90 mg/dL (70-100); HDL Cholesterol 74 mg/dL (40-60); HEMOLYSIS < 15 (0-50); LDL Cholesterol Calculated 112 mg/dL (<100); Potassium 3.8 mmol/L (3.4-5.1); Sodium 137 mmol/L (137-145); Triglycerides 79 mg/dL (35-150)
[2022-03-30 19:27] LABS: Follicle Stimulating Hormone 12.4 mIU/mL
[2022-03-30 19:41] LABS: TSH w/ Reflex to FT4 0.94 uIU/mL (0.47-4.68)
== END ==
PROVIDERS: Physician Assistant Medical; PCP Family Medicine; Visit Provider Family Medicine
DX: F33.41 Major depressive disorder, recurrent, in partial remission (principal); F41.1 Generalized anxiety disorder; I10 Essential (primary) hypertension; K63.89 Other specified diseases of intestine; Z87.442 Personal history of urinary calculi; N92.1 Excessive and frequent menstruation with irregular cycle; N93.9 Abnormal uterine and vaginal bleeding, unspecified
CPT/HCPCS: 80048; 80061; 83001; 83002; 84443; 85025

== ENCOUNTER 2022-05-18 09:20 | Day surgery (SDC) | payer OTHER, SELFPAY ==
[2022-05-18] VITALS (10 sets, daily range): BP systolic 119–144; BP diastolic 70–92; PULSE 46–66; RESP 16–18; TEMP 36.1–36.7; O2SAT 97–100; BMI 29.2
--- NOTE | 2022-05-18 | PATH_ITS ---
[facility] Accession Number: [id number] No. of containers..02 Tissue . 01 Material submitted: . PART A: endocervix - ENDOCERVICAL CURETTAGE PART B: endometrium - ENDOMETRIAL CURETTINGS . 01 Diagnosis: A. Endocervix, Curetting: Scant benign endocervical tissue. No dysplasia or malignancy. . B. Endometrium, Curettings: Fragmented endometrium with histologic features compatible with weakly proliferative-type endometrium. No significant cytologic atypia and no malignancy. MRV 05/21/2022 1017 Local . 01 Electronically signed: . Kristina Michelle MD, Pathologist NPI- [id number] . 01 Gross description: . Part A: ENDOCERVICAL CURETTAGE: Received in formalin are minute fragments of mucoid and hemorrhagic material measuring 0.6 x 0.1 x 0.1 cm in aggregate. Submitted in toto in 1 cassette. Part B: ENDOMETRIAL CURETTINGS: Received in formalin are minute fragments of mucoid and hemorrhagic material measuring 2.5 x 0.7 x 0.1 cm in aggregate. Submitted in toto in 1 cassette. /CPE 05/19/2022 0850 Local . 01 Pathologist provided ICD-10: N92.4 . 01 CPT . 968484, 305009 Specimen Comment: A courtesy copy of this report has been sent to [phone] Performed at: 01 [facility] [address] [place] [address], [place], [place] [id number] MD Christian Hdz MD Phone: [phone]
[2022-05-18] MEDS: LACTATED RINGERS 1,000 ML 42 ML IV (09:53)
[2022-05-18 10:18] LABS: COVID19 -Nasal RAPID Negative (Negative)
--- NOTE | 2022-05-18 11:09 | P.HPOB_ITS ---
History of Present Illness History of Present Illness Reason for admission: vaginal bleeding Narrative: Sherry is a 52-year-old , LMP 327 through 01/21/2022 who presents in referral from her primary care provider for evaluation of the aforementioned complaints.? Patient experienced menarche at age 13 and pretty much had normal regular periods lasting 5-7 days throughout her adult reproductive life.? Her periods have been regular up until the last year when the interval began increasing and currently she has.? Exam week 2 months which last 10-14 days.? These periods are associated with clots and overflows.? In the last month, she has developed persistent intermenstrual spotting/bleeding.? Paps have always been normal and her most recent Pap was less than a year ago.? Patient does have vasomotor symptoms and night sweats with some insomnia.? Contraception is by tubal ligation which was performed at the time of her 2nd in 2005.? She had a Bartholin's gland abscess approximately 2 months ago which drained spontaneously and is currently resolved.? Review of systems is notable only for some intermittent right lower quadrant pain.? Patient underwent pelvic US on 03/09/2022 which showed: PROCEDURE:? US PELVIC COMPLETE ?? FINDINGS:? ?? Uterus:? Uterus is anteverted and normal in size at 11 x 7.4 x 5.8 cm. The myometrium is homogeneous.? Cysts area section scar.? The endometrium measures 20 mm combined thickness.? Small anechoic cystic region within the endometrial canal measuring 0.9 cm.? Cystic change at the cervix likely due to small nabothian cyst. ? Ovaries:? The right ovary is not seen.? The left ovary measures 4.2 x 3.6 x 3.4 cm, with a calculated ovarian volume of 27 cc. The left ovary has a normal sonographic appearance. ?Simple left ovarian anechoic cyst measuring 3.6 cm. Less than 12 follicles can be seen in the left ovary.? No adnexal masses are seen.? ? Other:? No pathologic free abdominal or pelvic fluid.? ? IMPRESSION: ? 1. Endometrium is thickened measuring 20 mm.? There is cystic change within the endometrium.? Consider follow-up pelvic ultrasound or endometrial biopsy in this perimenopausal patient.? ? 2. Simple anechoic left ovarian cyst measuring at 3.6 cm.? Right ovary is not seen.? ? Endometrial biopsy was attempted 03/23/2022 but no endometrial tissue was obtained. After discussion of all options we are proceeding to hysteroscopy with possible biopsies, dilation and curettage of the uterus, and Novasure endometrial ablation unless findings at hysteroscopy mitigate against it's performance.. [facility] Medical History (Updated 05/18/22 @ 11:33 by Raul Ortiz MD) Depression (~2000) Diverticulosis Dyspareunia due to medical condition in female patient Environmental allergies (~2005) GERD (gastroesophageal reflux disease) (~2015) Hearing loss History of depressive symptoms History of nephrolithiasis History of nephrolithiasis Irritable bowel syndrome (~2002) Kidney stones Restless leg syndrome (~2017) Scoliosis Sleep apnea (~2018) Vaginismus (~1992) Surgical History Anesthesia H/O hernia repair (~2002) H/O laparoscopy (~2011) History of delivery (~2001) History of section (~2005) History of eye surgery (~1974) History of surgery (~2020) History of tubal ligation Status post trigger finger release (~1982) Family History Father Coronary artery disease Giant cell arteritis Thyroid disorder Daughter Eczema Sister Eczema Hypertension Migraines Kidney stones Depression Mental health problem Anxiety Mother Hypertension Migraines Depression Mental health problem Anxiety Grandmother Parkinson's disease Hypertension Grandfather Scleroderma Social History marital status: number of children: 2 household members: significant other occupational status: employed Smoking Status: Never smoker alcohol intake: never caffeine: No Meds Home Medications and Allergies Home Medications Medication Instructions Recorded Confirmed Type digestive enzymes (plant) 167 mg 167 mg PO DAILY 01/19/21 05/18/22 History capsule hydrochlorothiazide 25 mg tablet 25 mg PO DAILY #90 tabs 07/19/21 05/18/22 Rx amlodipine 5 mg tablet 5 mg PO BID #180 tabs 09/18/21 05/18/22 Rx citalopram 10 mg tablet 10 mg PO BEDTIME #90 tabs 03/02/22 05/18/22 Rx Allergies Allergy/AdvReac Type Severity Reaction Status Date / Time codeine [CODEINE] Allergy Mild vomit Verified 05/18/22 09:47 adhesive tape Allergy Verified 05/18/22 09:47 levofloxacin [From Levaquin] AdvReac Hallucinati Verified 05/18/22 09:47 ng Morpholine Analogues AdvReac Vomiting Verified 05/18/22 09:47 ondansetron [From Zofran] AdvReac Palpitation Verified 05/18/22 09:47 s Review of Systems Review of Systems Narrative: Problem-specific ROS positives included in HPI Exam Vital Signs (past 8 hours): - 05/18/22 09:49 Temperature 98.1 F Pulse Rate 53 L Respiratory Rate 16 Blood Pressure 131/76 Pulse Oximetry 97 Oxygen Delivery Method Room Air Oxygen Delivery Method Room Air Const General: cooperative and comfortable Nutritional Appearance: average body habitus Orientation: alert and oriented x3 HENMT Head: normal to inspection, atraumatic and abrasion Ears: hearing grossly normal bilaterally Face and sinus: face symmetric Eyes General: appearance normal, both eyes and all related structures Conjunctivae: conjunctivae normal Sclera: sclerae normal EOM: EOM intact bilaterally Neck Neck: normal visual inspection Resp Effort & Inspection: normal respiratory effort and able to speak in complete sentences Auscultation: clear to auscultation bilaterally Cardio Rate: regular rate Rhythm: regular rhythm Heart Sounds: S1 normal, S2 normal and no murmurs GI Inspection: normal to inspection Palpation: soft, no hepatosplenomegaly and No tender External Female Exam: other (No significant bleeding noted) Other: External Female Exam: normal external appearance and normal appearance of the urethra Urethra: normal appearance of the urethra Speculum Exam - Vagina: normal appearance of the vagina and normal vaginal discharge Speculum Exam - Cervix: normal appearance of the cervix, cervical os open and no lesions Bimanual Exam- Vagina & Uterus: normal bimanual exam Bimanual Exam- Adnexa, other: normal adnexae, no masses and non-tender OB/External & Speculum: cervical os open Speculum Exam: cervical os open Extrem General: no calf tenderness Psych Appearance: grossly normal Mental Status: mental status grossly normal Speech and Movement: speech and movement normal Mood: congruent mood Affect: normal affect Attitude: cooperative Thought Process: normal Thought Content: normal Judgment: judgment good Objective Labs Labs: Laboratory Results - last 24 hr 05/18/22 09:43 SARS-CoV-2 (PCR) Negative Assessment & Plan Assessment and plan (1) Abnormal uterine bleeding due to adenomyosis: Status: Acute (2) Endometrial thickening on ultrasound: Status: Acute Plan 1. Admit for hysteroscopy with possible biopsies, D&C, Novasure endometrial ablation 2. Patient counseled regarding alternatives, risks, benefits, and potential complications associated with hysteroscopy with possible biopsies, dilation and curettage of the uterus, and endometrial ablation (NovaSure). With full understanding of the above, a written consent was executed, signed, and witnessed this date. 3. Patient also understands that if significant abnormality of the endometrial cavity is noted NovaSure may be omitted. She also understands that because her uterus is acutely anteflexed, safe performance of hysteroscopy with rigid hysteroscope may not be feasible and instead will simply have dilation and curettage performed to assess endometrial histology. COVID-19 COVID-19 status: Negative Result date/Date tested (Pos, Neg/Pending): 05/18/22 Time Spent With Patient Time with patient: less than 30 minutes
[2022-05-18] MEDS: SCOPOLAMINE 1 PATCH TOP (11:20)
--- NOTE | 2022-05-18 11:37 | PM.PREOP ---
Pre-operative Note COVID-19 COVID-19 status: Negative Result date/Date tested (Pos, Neg/Pending): 05/18/22 Criteria for continued procedure: Non-surgical alternatives not available or appropriate per current SOC Interval Note History & Physical reviewed/Exam performed by Physician: Yes Changes to H&P: No
--- NOTE | 2022-05-18 12:04 | SUR.OPER ---
Lithotomy on padded OR bed, head on pillow, arms secured on padded arm boards at <90 degrees abduction. Legs secured in padded yellow fins stirrups.
--- NOTE | 2022-05-18 12:15 | PM.GYNOP.1 ---
Operative Date/Time/Diagnoses Date of procedure: 05/18/22 Time of procedure: 11:45 Pre-op diagnosis: Abnormal uterine bleeding Thickened endometrium on US Post-op diagnosis: same Procedure & Clinicians Procedure: Procedures Operation Date: 05/18/22 11:00 Hysteroscopy; Dilation and Curettage of the uterus; Endometrial ablation (Novasure) Indications: Sherry is a 52-year-old , LMP 327 through 01/21/2022 who presents in referral from her primary care provider for evaluation of the aforementioned complaints.? Patient experienced menarche at age 13 and pretty much had normal regular periods lasting 5-7 days throughout her adult reproductive life.? Her periods have been regular up until the last year when the interval began increasing and currently she has.? Exam week 2 months which last 10-14 days.? These periods are associated with clots and overflows.? In the last month, she has developed persistent intermenstrual spotting/bleeding.? Paps have always been normal and her most recent Pap was less than a year ago.? Patient does have vasomotor symptoms and night sweats with some insomnia.? Contraception is by tubal ligation which was performed at the time of her 2nd in 2005.? She had a Bartholin's gland abscess approximately 2 months ago which drained spontaneously and is currently resolved.? Review of systems is notable only for some intermittent right lower quadrant pain.? Patient underwent pelvic US on 03/09/2022 which showed: PROCEDURE:? US PELVIC COMPLETE ?? FINDINGS:? ?? Uterus:? Uterus is anteverted and normal in size at 11 x 7.4 x 5.8 cm. The myometrium is homogeneous.? Cysts area section scar.? The endometrium measures 20 mm combined thickness.? Small anechoic cystic region within the endometrial canal measuring 0.9 cm.? Cystic change at the cervix likely due to small nabothian cyst. ? Ovaries:? The right ovary is not seen.? The left ovary measures 4.2 x 3.6 x 3.4 cm, with a calculated ovarian volume of 27 cc. The left ovary has a normal sonographic appearance. ?Simple left ovarian anechoic cyst measuring 3.6 cm. Less than 12 follicles can be seen in the left ovary.? No adnexal masses are seen.? ? Other:? No pathologic free abdominal or pelvic fluid.? ? IMPRESSION: ? 1. Endometrium is thickened measuring 20 mm.? There is cystic change within the endometrium.? Consider follow-up pelvic ultrasound or endometrial biopsy in this perimenopausal patient.? ? 2. Simple anechoic left ovarian cyst measuring at 3.6 cm.? Right ovary is not seen.? ? Endometrial biopsy was attempted 03/23/2022 but no endometrial tissue was obtained.? After discussion of all options we are proceeding to hysteroscopy with possible biopsies, dilation and curettage of the uterus, and Novasure endometrial ablation unless findings at hysteroscopy mitigate against it's performance.. Surgeon: Raul Ortiz Anesthesia Type: General Operative Notes Findings: Unremarkable uterine cavity w/ no focal lesions identified. Closure Type: not applicable Specimen(s): endometrial curettings and other (Endocervical curettings) Estimated blood loss (mL): 15 Blood products transfused: none Procedure in detail: With the patient under satisfactory general anesthesia in the modified dorsal lithotomy position, the perineum, vagina, and lower abdomen were prepped and draped in the usual fashion for vaginal surgery. A pre-surgical safety time-out was then taken in accordance with [facility] OR protocols. A bivalve speculum was then inserted in the vagina and the anterior lip of the cervix was grasped with a single-tooth tenaculum. The uterus was sounded to 8.5 cm and once the endocervical tract was identified, the endocervical canal was dilated to 8 mm and hysteroscope introduced in to the endometrial cavity. The cavity was visualized, the endometrium was bland in appearance, and no focal abnormalities were noted. Fractional dilation and curettage was then accomplished with endocervical and endometrial curettings obtained. Each was submitted as a separate pathologic specimen for evaluation. The NovaSure sounding device was then used to determine the depth of the cavity at 6.5 cm with a width of 3.7 cm.. After cavity integrity was assured, NovaSure ablation was performed with a total wattage of 132W and time of ablation 44 seconds. The NovaSure device was removed from the endometrial cavity and hysteroscopy showed excellent ablation effect throughout the cavity. Scope was removed and the single-tooth tenaculum removed from the anterior lip cervix. No bleeding was noted and the speculum was removed the vagina. The patient was then awakened and transferred to the PACU for a period of observation and recovery after having tolerated the procedure well. Complications: none Post-operative Condition: stable Disposition: PACU Plan for aftercare: Routine post-operative care and follow-up 2 weeks post-op.
[2022-05-18] MEDS: HYDROCODONE/ACET 5/325 TABLET 1 TAB PO (12:29)
== END 2022-05-18 13:47 | disposition home or self-care (01) ==
PROVIDERS: PCP Family Medicine; Referring Provider Obstetrics & Gynecology; Visit Provider Obstetrics & Gynecology
PROC: 0U5B8ZZ Destruction of Endometrium, Via Natural or Artificial Opening Endoscopic (ICD-10-PCS; CPT 58563; principal; 2022-05-18 11:00)
DX: N93.9 Abnormal uterine and vaginal bleeding, unspecified (principal); R93.89 Abnormal findings on diagnostic imaging of other specified body structures; Z20.822 Contact with and (suspected) exposure to COVID-19; N83.292 Other ovarian cyst, left side
CPT/HCPCS: 58563; 87635; C9803; J1100; J1885; J2250; J2704; J3010

== ENCOUNTER → 2022-08-09 09:26 | Outpatient (CLI) | payer OTHER, SELFPAY ==
[2022-08-09 20:38] LABS: Hepatitis B Surface Antigen NEGATIVE s/c (NEGATIVE)
[2022-08-09 20:55] LABS: HIV 1 & 2 Ab/Ag 4th Gen Combo NEGATIVE (NEGATIVE); Hep C Virus Ab w/Reflex Quant NEGATIVE s/c (NEGATIVE)
[2022-08-11 00:53] LABS: Hepatitis B Core Antibody Negative (Negative)
[2022-08-13 05:44] LABS: Hepatitis B Surf Ab Qualitativ Reactive (.)
== END ==
PROVIDERS: PCP Family Medicine; Visit Provider Family Medicine
DX: T14.8XXA Other injury of unspecified body region, initial encounter (principal); W46.1XXA Contact with contaminated hypodermic needle, initial encounter
CPT/HCPCS: 86704; 86706; 86803; 87340; 87389

== ENCOUNTER → 2024-02-03 09:48 | Outpatient (CLI) | payer OTHER, SELFPAY | PROVIDERS: PCP Family Medicine; Visit Provider Physician Assistant | DX: R30.9 Painful micturition, unspecified (principal) | CPT/HCPCS: 87077; 87086; 87186 ==

== ENCOUNTER → 2024-02-26 11:49 | Outpatient (CLI) | payer OTHER, SELFPAY | PROVIDERS: PCP Family Medicine; Visit Provider Physician Assistant | DX: N39.0 Urinary tract infection, site not specified (principal) | CPT/HCPCS: 87086 ==

== ENCOUNTER → 2024-03-11 11:05 | Outpatient (CLI) | payer OTHER, SELFPAY ==
[2024-03-11 19:52] LABS: Appearance Urine UA CLEAR; Bilirubin Urine UA NEGATIVE (NEGATIVE); Color Urine UA YELLOW; Glucose Urine UA NEGATIVE (Negative); Ketones Urine UA NEGATIVE (NEGATIVE); Leukocyte Esterase Urine UA NEGATIVE (NEGATIVE); Nitrite Urine UA NEGATIVE (Negative); Occult Blood Urine UA TRACE-INTACT (Negative); Protein Urine UA NEGATIVE (Negative); Urobilinogen Urine UA 0.2 E.U./dL (0.2)
[2024-03-11 20:19] LABS: Follicle Stimulating Hormone 74.2 mIU/mL; Luteinizing Hormone 41.5 mIU/mL
[2024-03-11 20:26] LABS: Bacteria Urine Occasional (0-1); Culture Indicated Urine Cult Not Indicated; RBC Urine None Seen (0-5/HPF); Squamous Epithelial Cell Urine 1-5 /HPF (0-5/HPF); Urine Volume 10mL (spun); WBC Urine 0-1/HPF (0-5/HPF)
== END ==
PROVIDERS: Physician Assistant; PCP Family Medicine; Visit Provider Family Medicine
DX: N92.4 Excessive bleeding in the premenopausal period (principal); R93.89 Abnormal findings on diagnostic imaging of other specified body structures; R23.2 Flushing; Z78.0 Asymptomatic menopausal state; Z87.440 Personal history of urinary (tract) infections; R31.9 Hematuria, unspecified
CPT/HCPCS: 81001; 83001; 83002

== ENCOUNTER → 2024-04-21 10:30 | Outpatient (CLI) | payer OTHER, SELFPAY | PROVIDERS: PCP Family Medicine; Visit Provider Nurse Practitioner Adult Health | DX: Z11.3 Encounter for screening for infections with a predominantly sexual mode of transmission (principal); Z01.419 Encounter for gynecological examination (general) (routine) without abnormal findings; Z12.4 Encounter for screening for malignant neoplasm of cervix | CPT/HCPCS: 87491; 87591; 87661 ==

== ENCOUNTER 2024-10-05 23:16 | Emergency (ER) | payer OTHER, SELFPAY ==
[2024-10-05 23:24] VITALS: BP 146/68; PULSE 70; RESP 16; TEMP 36.3; O2SAT 96; BMI 28.8
--- NOTE | 2024-10-05 23:53 | ED_ITS ---
HPI - Extremity Problem General Chief complaint: Extremity Problem,Nontraumatic Stated complaint: clogged vein on rt calf Time Seen by Provider: 10/05/24 23:30 Source: patient Mode of arrival: Family Vehicle History of Present Illness HPI Narrative: Patient was 54-year-old female. Not on anticoagulation. No prior history blood clots he was here evaluation of swelling and discomfort to her right calf muscle. She states that she feels like there is a ?pain? in the right calf. No trauma. No chest pain. No shortness of breath. No recent immobilization. Skin changes. Related Data Home Medications Medication Instructions Recorded Confirmed digestive enzymes (plant) 167 mg 167 mg PO DAILY 01/19/21 03/06/24 capsule Previous Rx's Medication Instructions Recorded citalopram 10 mg tablet 10 mg PO ONCE PM #90 tabs 02/21/24 calcium citrate 250 mg PO BID #180 tabs 03/09/24 hydrochlorothiazide 25 mg tablet 25 mg PO DAILY #90 tabs 04/14/24 amlodipine 5 mg tablet 5 mg PO BID #180 tabs 05/05/24 Allergies Allergy/AdvReac Type Severity Reaction Status Date / Time codeine [CODEINE] Allergy Mild vomit Verified 02/26/24 11:09 adhesive tape Allergy Verified 02/26/24 11:09 levofloxacin [From Levaquin] AdvReac Hallucinati Verified 02/26/24 11:09 ng Morpholine Analogues AdvReac Vomiting Verified 02/26/24 11:09 ondansetron [From Zofran] AdvReac Palpitation Verified 02/26/24 11:09 s Review of Systems Musculoskeletal Musculoskeletal: Reports system reviewed and no additional complaints, except as documented Integumentary/Breasts Skin/Breast: Reports system reviewed and no additional complaints, except as documented Patient History Medical History Cervical cancer screening Encounter for well woman exam with routine gynecological exam Screening for STD (sexually transmitted disease) History of nephrolithiasis Depression (~2000) Restless leg syndrome (~2017) Scoliosis Sleep apnea (~2018) Environmental allergies (~2005) Hearing loss Vaginismus (~1992) Irritable bowel syndrome (~2002) Dyspareunia due to medical condition in female patient Kidney stones GERD (gastroesophageal reflux disease) (~2015) Diverticulosis History of depressive symptoms Surgical History Anesthesia History of surgery (~2020) History of section (~2005) Status post trigger finger release (~1982) History of eye surgery (~1974) History of tubal ligation History of delivery (~2001) H/O laparoscopy (~2011) H/O hernia repair (~2002) Family History Father Coronary artery disease Giant cell arteritis Thyroid disorder Daughter Eczema Sister Eczema Hypertension Migraines Kidney stones Depression Mental health problem Anxiety Mother Hypertension Migraines Depression Mental health problem Anxiety Grandmother Parkinson's disease Hypertension Grandfather Scleroderma Social History marital status: number of children: 2 household members: significant other occupational status: employed Smoking Status: Never smoker alcohol intake: never caffeine: No Smoking Status: Never smoker Exam Initial Vital Signs Initial Vital Signs: Vital Signs Temperature 97.3 F L 10/05/24 23:24 Pulse Rate 70 10/05/24 23:24 Respiratory Rate 16 10/05/24 23:24 Blood Pressure 146/68 H 10/05/24 23:24 Pulse Oximetry 96 10/05/24 23:24 Oxygen Delivery Method Room Air 10/05/24 23:24 Const General: cooperative and No ill appearing Cardio Pulses: dorsalis pedis present on the right Skin General: no rashes or lesions noted Extrem General: capillary refill normal, calf tenderness (Right calf) and edema (Right lower extremity) Other: No pitting edema noted Scores Wells' Criteria for DVT Active Cancer (Treatment within 6 months): No Bedridden recently >3 days or major surgery within 4 weeks: No Calf Swelling >3cm compared to other leg: Yes Collateral (nonvericose) superficial veins present: No Entire leg swollen: No Localized tenderness along the deep vein system: Yes Pitting edema, confined to symtomatic leg: No Paralysis, paresis, or recent plaster immobilization of ext: No Previously documented DVT: No Alternative dx to DVT as likely or more likely: No Wells' criteria for DVT: 2 Course Vital Signs Vital signs: Vital Signs - 8 hr 10/05/24 23:24 10/06/24 01:11 10/06/24 01:11 Temperature 97.3 F L Pulse Rate 70 56 L Respiratory Rate 16 17 Blood Pressure 146/68 H 122/82 Pulse Oximetry 96 98 Oxygen Delivery Method Room Air Room Air MDM - Extremity (Nontraumatic) Lab Data 10/06/24 00:01 10/06/24 00:01 Labs: Lab Results 10/06/24 Range/Units 00:01 WBC 7.9 (4.5-11.0) X10^3/uL RBC 4.55 (4.0-5.2) X10^6/uL Hgb 13.7 (12.0-16.0) g/dL Hct 40.5 (36-46) % MCV 89.0 (80-100) fL MCH 30.0 (26-34) PG MCHC 33.7 (30-36) % RDW 13.5 (11.6-14.8) % Plt Count 268 (150-400) X10^3/uL Neut % (Auto) 42.8 L (50-75) % Lymph % (Auto) 42.7 H (25-40) % [place] % (Auto) 6.9 (3-14) % Eos % (Auto) 6.4 H (2-4) % Baso % (Auto) 1.2 (0-2) % Neut # (Auto) 3400 (3582-0448) /uL Lymph # (Auto) 3400 (8727-5888) /uL [place] # (Auto) 500 (0-900) /uL Eos # (Auto) 500 H (0-450) /uL Baso # (Auto) 100 (0-100) /uL D-Dimer 259 (<500) ng/ml Sodium 140 (137-145) mmol/L Potassium 3.6 (3.4-5.1) mmol/L Chloride 103 (98-107) mmol/L Carbon Dioxide 29 (22-32) mmol/L BUN 17 (7-17) mg/dL Creatinine 1.03 (0.52-1.04) mg/dL Estimated GFR > 60 (>60) mL/min BUN/Creatinine Ratio 16.5 (6-22) Glucose 115 H (70-100) mg/dL Calcium 10.1 (8.4-10.2) mg/dL MDM Narrative Medical decision making narrative: Patient does have a Wells score of 2 and a negative D-dimer. This makes the chances of a DVT the some 1% with. We will hold on ultrasound for now. Symptoms are not consistent with cellulitis. I have no concern for fracture. No indication further radiologic studies. We discussed conservative measures to include keeping leg elevated and compression stockings and massage. Recommended that she contact her primary doctor for follow-up she expressed understanding and agreement with plan. Discharge Plan Departure Patient Disposition: Home Clinical Impression: Edema Instructions: DI for Peripheral Edema-Unilateral Activity Restrictions/Additional Instructions: Continue to take all of your medications as directed. I recommend conservative measures such as keep your leg elevated and massage and potentially using compression stockings. Contact your primary care doctor for a follow-up. Return to the emergency department for new symptoms. Prescriptions: No Action citalopram 10 mg tablet 10 mg PO ONCE PM Qty: 90 2RF hydrochlorothiazide 25 mg tablet 25 mg PO DAILY Qty: 90 2RF Rx Instructions: Please obtain further refills through PCP. amlodipine 5 mg tablet 5 mg PO BID Qty: 180 3RF calcium citrate 250 mg calcium tablet 250 mg PO BID Qty: 180 1RF digestive enzymes (plant) 167 mg capsule 167 mg PO DAILY Referrals: Frankie Oritz MD [Primary Care Provider] - Stand Alone Forms: Patient Portal/API/Survey
[2024-10-06 00:14] LABS: Add Manual Diff / Slide Review NO; Basophils Absolute Auto 100 /uL (0-100); Basophils Percent Auto 1.2 % (0-2); Eosinophils Absolute Auto 500 /uL (0-450); Eosinophils Percent Auto 6.4 % (2-4); Hematocrit 40.5 % (36-46); Hemoglobin 13.7 g/dL (12.0-16.0); Lymphocytes Absolute Auto 3400 /uL (1100-4500); Lymphocytes Percent Auto 42.7 % (25-40); Mean Corpuscular HGB Conc 33.7 % (30-36); Monocytes Absolute Auto 500 /uL (0-900); Monocytes Percent Auto 6.9 % (3-14); Neutrophils Absolute Auto 3400 /uL (1500-7000); Neutrophils Percent Auto 42.8 % (50-75); Platelet Count 268 X10^3/uL (150-400); Red Blood Cell Count 4.55 X10^6/uL (4.0-5.2); Red Cell Distribution Width 13.5 % (11.6-14.8); White Blood Cell Count 7.9 X10^3/uL (4.5-11.0)
[2024-10-06 00:27] LABS: BUN Creatinine Ratio 16.5 (6-22); Blood Urea Nitrogen 17 mg/dL (7-17); Calcium 10.1 mg/dL (8.4-10.2); Carbon Dioxide 29 mmol/L (22-32); Chloride 103 mmol/L (98-107); Estimated Glomerular Filt Rate > 60 mL/min (>60); Glucose 115 mg/dL (70-100); HEMOLYSIS 17 (0-50); Potassium 3.6 mmol/L (3.4-5.1); Sodium 140 mmol/L (137-145)
[2024-10-06 00:36] LABS: D Dimer 259 ng/ml (<500)
[2024-10-06 01:11] VITALS: BP 122/82; PULSE 56; RESP 17; O2SAT 98
== END 2024-10-06 01:15 | disposition home or self-care (01) ==
PROVIDERS: Emergency Provider Emergency Medicine; PCP Family Medicine
DX: R60.0 Localized edema (principal)
CPT/HCPCS: 36415; 80048; 85025; 85379; 99283